=== PATIENT | female | born 1995 | race Caucasian/White ===

== ENCOUNTER 2018-04-21 20:38 | Outpatient (CLI) | payer OTHER ==
[2018-04-21] MEDS: HYDROCODONE/APAP (5/325) TAB PO (21:23)
[2018-04-21 21:52] LABS: ADD UMIC YES; UR ASCORBIC ACID NEGATIVE (NEGATIVE); UR BACTERIA MANY /HPF (NONE SEEN); UR BILIRUBIN (Dip) NEGATIVE (NEGATIVE); UR BLOOD (Dip) NEGATIVE (NEGATIVE); UR CLARITY SLIGHTLY CLOUDY (CLEAR); UR COLOR YELLOW (YELLOW); UR GLUCOSE (Dip) NEGATIVE (NEGATIVE); UR KETONES (Dip) TRACE mg/dL (NEGATIVE); UR LEUKOCYTE ESTERASE (Dip) 3+ Leu/ul (NEGATIVE); UR MUCUS MANY /HPF (NONE SEEN); UR NITRITE (Dip) NEGATIVE (NEGATIVE); UR RBC 1 /HPF (0-5); UR SPECIFIC GRAVITY (Dip) 1.017 (1.003-1.030); UR SQUAMOUS EPITHELIAL CELL FEW /HPF (FEW); UR TOTAL PROTEIN (Dip) NEGATIVE (NEGATIVE); UR UROBILINOGEN (Dip) 1+ mg/dL (NEGATIVE); UR WBC 12 /HPF (0-5)
[2018-04-21] MEDS: LACTATED RINGER'S 1,000 ML IV (22:56)
[2018-04-21] MEDS: ONDANSETRON 4 MG INJ IV (22:56)
== END 2018-04-22 00:01 | disposition home or self-care (01) ==
LOC: OBT 20:38 → L-D 20:40
DX: O23.42 Unspecified infection of urinary tract in pregnancy, second trimester (principal); O21.0 Mild hyperemesis gravidarum; Z3A.20 20 weeks gestation of pregnancy
CPT/HCPCS: 36415; 76817; 81001; 96360